=== PATIENT | female | born 1980 | race Caucasian/White ===

== ENCOUNTER 2024-03-25 23:16 | Emergency (ER) | payer OTHER, MEDICAID ==
[~2024-03-25] VITALS: Ht 160 cm; Wt 90.7 kg
[2024-03-25 23:26] VITALS: BP_SYST 140; PULSE 83; RESP 16; TEMP 97.8; O2SAT 96
[2024-03-26] MEDS ORDERED: IBUP-1971 PO (01:06)
[2024-03-26] MEDS ORDERED: HYDR-3917 PO (01:06)
[2024-03-26] MEDS: KETOROLAC TROMETHAMINE 60 MG/2 ML VIAL IM ONE (01:14)
[2024-03-26 01:19] VITALS: BP_SYST 140; PULSE 83; RESP 16; TEMP 97.8; O2SAT 96
== END 2024-03-26 01:20 | disposition home or self-care (01) ==
LOC: SED 23:16
DX: M79.18 Myalgia, other site (principal); M54.2 Cervicalgia; M54.50 Low back pain, unspecified; Z88.6 Allergy status to analgesic agent
CPT/HCPCS: 99283; 96372; J1885